=== PATIENT | female | born 1985 | race Caucasian/White ===

== ENCOUNTER 2017-05-16 11:44 | Day surgery (SDC) | payer BC, OTHER ==
[~2017-05-16] VITALS: Ht 167.6 cm; Wt 61.0 kg
[~2017-05-16 11:44] MED LIST: IBUP-1222 PO; IBUP200C5 PO; OXYC-302 PO; PREN1TAB27 PO
[2017-05-16 12:12] VITALS: BP 117/84
[2017-05-16] MEDS ORDERED: LACTATED RINGERS 1,000 ML IV SCH (12:15)
[2017-05-16] MEDS ORDERED: TYLENOL PO (12:18)
[2017-05-16 12:24] LABS: HCG UR LOT HCG7060132
[2017-05-16 12:33] LABS: HCG UR OBC PASS
[2017-05-16] MEDS ORDERED: EPHEDRINE 50 MG/ML, 1ML IVPush PRN (14:00)
[2017-05-16] MEDS ORDERED: ONDANSETRON 2MG/ML, 2ML IVPush PRN (14:00)
[2017-05-16] MEDS ORDERED: hydrALAzine 20 MG/ML, 1ML IV PRN (14:00)
[2017-05-16] MEDS ORDERED: ALBUTEROL SULFATE 2.5 MG/3 ML NPPB PRN (14:00)
[2017-05-16] MEDS ORDERED: FENTANYL PF 100 MCG/2ML IV PRN (14:00)
[2017-05-16] MEDS ORDERED: PROMETHAZINE 25 MG/ML, 1ML IV PRN (14:00)
[2017-05-16] MEDS ORDERED: MEPERIDINE/PF 25MG/0.5ML IVPush PRN (14:00)
[2017-05-16] MEDS ORDERED: HYDROmorphone 1 MG/ML, 1ML IV PRN (14:00)
[2017-05-16] MEDS ORDERED: ACETAMINOPHEN 325 MG TABLET PO PRN (14:00)
[2017-05-16] MEDS ORDERED: METOPROLOL 1 MG/ML, 5ML IV PRN (14:00)
[2017-05-16] MEDS ORDERED: LABETALOL 5MG/ML, 20ML IV PRN (14:00)
[2017-05-16] MEDS ORDERED: DEXAMETHASONE 4 MG/ML, 1ML ONE ×2 (14:04)
[2017-05-16] MEDS ORDERED: PROPOFOL 10 MG/ML, 20ML ONE (14:04)
[2017-05-16] MEDS ORDERED: ONDANSETRON 2MG/ML, 2ML ONE (14:04)
[2017-05-16] MEDS ORDERED: FENTANYL PF 250 MCG/5ML ONE (14:04)
[2017-05-16] MEDS ORDERED: MIDAZOLAM 1 MG/ML, 2ML ONE (14:04)
[2017-05-16] MEDS ORDERED: CLINDAMYCIN 150 MG/ML, 6ML ONE (14:38)
== END 2017-05-16 18:35 ==
LOC: OUT 11:44
PROVIDERS: ATTEND Orthopaedic Surgery
DX: M24.671 Ankylosis, right ankle (principal); M89.8X7 Other specified disorders of bone, ankle and foot; J45.909 Unspecified asthma, uncomplicated; Z88.6 Allergy status to analgesic agent; Z88.8 Allergy status to other drugs, medicaments and biological substances
CPT/HCPCS: 29891; 29898; 81025; J1100; J2250; J2405; J2704; J3010; J7120

== ENCOUNTER → 2020-07-24 | Outpatient (CLI) | payer BC, OTHER ==
[~2020-07-24] MED LIST changes: +IBUP-1623 PO; -IBUP200C5 PO; +LANS15CA PO; +MONT10TA6 PO; -OXYC-302 PO; +OXYC1TAB14 PO; +TYLENOL PO
== END | disposition home or self-care (01) ==
LOC: STAR 12:27
PROVIDERS: ATTEND Obstetrics & Gynecology
DX: Z20.822 Contact with and (suspected) exposure to COVID-19 (principal)
CPT/HCPCS: U0003

== ENCOUNTER 2020-07-26 01:29 | Inpatient (IN) | payer BC, OTHER ==
[~2020-07-26] VITALS: Ht 167.6 cm; Wt 78.1 kg
[~2020-07-26 01:29] MED LIST changes: -LANS15CA PO; -MONT10TA6 PO
[2020-07-26] MEDS ORDERED: SODIUM CITRATE/CITRIC ACID 30 ML UDC PO ONE (05:30)
[2020-07-26] MEDS ORDERED: METOCLOPRAMIDE 5 MG/ML, 2ML IV ONE (05:30)
[2020-07-26] MEDS ORDERED: LACTATED RINGERS 1,000 ML IV SCH (05:30)
[2020-07-26] MEDS ORDERED: LACTATED RINGERS 1,000 ML IVBOLUS ONE (05:30)
[2020-07-26] MEDS ORDERED: MONT10TA6 PO (05:33)
[2020-07-26] MEDS ORDERED: LANS15CA PO (05:34)
[2020-07-26 05:37] VITALS: BP 124/81
[2020-07-26 05:56] LABS: BASOPHILS % (AUTO) 0 % (0-1); EOSINOPHILS % (AUTO) 1 % (1-7); LYMPHOCYTES % (AUTO) 25 % (22-44); MEAN CORPUSCULAR HEMOGLOBIN 31.7 pg (27.0-34.8); MEAN CORPUSCULAR HGB CONC 34.6 g/dL (32.4-35.8); MEAN PLATELET VOLUME 9.7 fL (7.4-10.4); MONOCYTES % (AUTO) 9 % (2-9); NEUTROPHILS % (AUTO) 64 % (42-75); PLATELET COUNT 203 x10^3/uL (130-400); RED CELL DISTRIBUTION WIDTH 14.3 % (9.6-15.2)
[2020-07-26] MEDS ORDERED: NEWBORN KIT ONE (06:05)
[2020-07-26] MEDS ORDERED: SODIUM CITRATE/CITRIC ACID 15 ML UDC ONE (06:12)
[2020-07-26] MEDS ORDERED: METOCLOPRAMIDE 5 MG/ML, 2ML ONE (06:12)
[2020-07-26] MEDS ORDERED: OXYTOCIN 30U/ 0.9% NaCL 500ML 500 ML ONE (06:12)
[2020-07-26 06:26] LABS: MD NO
[2020-07-26] MEDS ORDERED: EPHEDRINE 50 MG/ML, 1ML ONE (06:50)
[2020-07-26] MEDS ORDERED: FENTANYL PF 100 MCG/2ML ONE (06:50)
[2020-07-26] MEDS ORDERED: OXYTOCIN 10 UNITS/ML, 1ML ONE (06:50)
[2020-07-26] MEDS ORDERED: CEFAZOLIN 1,000 MG ONE (06:50)
[2020-07-26] MEDS ORDERED: EPINEPHRINE 1 MG/ML, 1ML ONE (06:50)
[2020-07-26] MEDS ORDERED: ONDANSETRON 2MG/ML, 2ML ONE ×2 (08:08→09:30)
[2020-07-26] MEDS ORDERED: KETOROLAC 30 MG/1 ML ONE (08:08)
[2020-07-26] MEDS ORDERED: ACETAMINOPHEN 500 MG TABLET ONE (08:48)
[2020-07-26] MEDS ORDERED: PROMETHAZINE 25 MG/ML, 1ML ONE ×2 (08:58→12:54)
[2020-07-26] MEDS ORDERED: OXYcodone IR 5MG TABLET PO PRN (09:00)
[2020-07-26] MEDS ORDERED: ONDANSETRON 2MG/ML, 2ML IV PRN (09:00)
[2020-07-26] MEDS ORDERED: PROMETHAZINE 25 MG/ML, 1ML IM PRN ×2 (09:00→19:00)
[2020-07-26] MEDS ORDERED: morphine SULFATE 10 MG/ML, 1ML IVPush PRN ×2 (09:00)
[2020-07-26] MEDS ORDERED: MISOPROSTOL 200 MCG TABLET PR PRN (09:00)
[2020-07-26] MEDS ORDERED: ACETAMINOPHEN 500 MG TABLET PO ONE (09:00)
[2020-07-26] MEDS ORDERED: MEASLES,MUMPS&RUBELLA VACC/PF 0.5 ML SQ-VACC PRN (09:00)
[2020-07-26] MEDS ORDERED: RHOGAM FROM BLOOD BANK 1 NOTE EA IM/IV ONE (09:00)
[2020-07-26] MEDS ORDERED: CALCIUM CARBONATE 500 MG TAB.CHEW PO PRN (09:00)
[2020-07-26] MEDS: LACTATED RINGERS 1,000 ML IV SCH ×4 (09:00→19:00)
[2020-07-26] MEDS ORDERED: SIMETHICONE 80 MG CHEW TAB PO PRN (09:00)
[2020-07-26] MEDS ORDERED: METOCLOPRAMIDE 5 MG/ML, 2ML IV PRN (09:00)
[2020-07-26] MEDS ORDERED: ACETAMINOPHEN 325 MG TABLET PO PRN (09:00)
[2020-07-26] MEDS: PRENATAL VIT/IRON/FA 1 EACH TABLET PO SCH (09:00)
[2020-07-26] MEDS: OXYTOCIN 30U/ 0.9% NaCL 500ML 500 ML IV SCH ×2 (09:47→19:00)
[2020-07-26 11:00] VITALS: BP 112/72
[2020-07-26] MEDS: KETOROLAC 30 MG/1 ML IV PRN ×2 (12:56→19:00)
[2020-07-26] MEDS: OXYcodone IR 5MG TABLET PO PRN ×3 (12:57→21:58)
[2020-07-26] MEDS ORDERED: PROMETHAZINE 25MG TABLET PO PRN (13:00)
[2020-07-26] MEDS ORDERED: MEPERIDINE/PF 50 MG/ML IM PRN (13:00)
[2020-07-26] MEDS: ACETAMINOPHEN 325 MG TABLET PO PRN ×2 (15:56→20:20)
[2020-07-26 16:00] VITALS: BP 110/78
[2020-07-26 19:32] VITALS: BP 114/72
[2020-07-26 20:10] LABS: BASOPHILS % (AUTO) 1 % (0-1); EOSINOPHILS % (AUTO) 1 % (1-7); LYMPHOCYTES % (AUTO) 18 % (22-44); MEAN CORPUSCULAR HEMOGLOBIN 31.9 pg (27.0-34.8); MEAN CORPUSCULAR HGB CONC 34.2 g/dL (32.4-35.8); MEAN PLATELET VOLUME 9.1 fL (7.4-10.4); MONOCYTES % (AUTO) 6 % (2-9); NEUTROPHILS % (AUTO) 75 % (42-75); PLATELET COUNT 147 x10^3/uL (130-400); RED BLOOD COUNT 3.25 x10^6/uL (3.82-5.3); RED CELL DISTRIBUTION WIDTH 14.2 % (9.6-15.2)
[2020-07-26 20:13] LABS: MD NO
[2020-07-26] MEDS: DOCUSATE 100 MG CAPSULE PO PRN (21:33)
[2020-07-27 00:33] VITALS: BP 108/74
[2020-07-27] MEDS: KETOROLAC 30 MG/1 ML IV PRN ×2 (01:18→07:33)
[2020-07-27] MEDS: OXYcodone IR 5MG TABLET PO PRN ×6 (02:08→22:26)
[2020-07-27 04:01] VITALS: BP 111/75
[2020-07-27] MEDS: ACETAMINOPHEN 325 MG TABLET PO PRN ×4 (04:04→22:23)
[2020-07-27] MEDS: OXYTOCIN 30U/ 0.9% NaCL 500ML 500 ML IV SCH ×2 (05:00→15:00)
[2020-07-27] MEDS: LACTATED RINGERS 1,000 ML IV SCH ×5 (05:00→17:00)
[2020-07-27 07:10] VITALS: BP 110/78
[2020-07-27] MEDS: DOCUSATE 100 MG CAPSULE PO PRN ×2 (07:33→19:48)
[2020-07-27] MEDS: PRENATAL VIT/IRON/FA 1 EACH TABLET PO SCH (09:00)
[2020-07-27 12:00] VITALS: BP 118/79
[2020-07-27] MEDS: IBUPROFEN 600 MG TABLET PO PRN ×2 (13:29→19:48)
[2020-07-27] MEDS ORDERED: OXYcodone IR 5MG TABLET ONE (14:01)
[2020-07-27 19:48] VITALS: BP 115/78
[2020-07-28] MEDS: LACTATED RINGERS 1,000 ML IV SCH ×2 (01:00)
[2020-07-28] MEDS: OXYTOCIN 30U/ 0.9% NaCL 500ML 500 ML IV SCH (01:00)
[2020-07-28] MEDS: OXYcodone IR 5MG TABLET PO PRN ×3 (02:28→10:20)
[2020-07-28] MEDS: ACETAMINOPHEN 325 MG TABLET PO PRN ×2 (02:28→06:34)
[2020-07-28] MEDS: IBUPROFEN 600 MG TABLET PO PRN ×2 (02:28→08:15)
[2020-07-28] MEDS ORDERED: IBUP-1222 PO (07:18)
[2020-07-28] MEDS ORDERED: OXYC1TAB14 PO (07:18)
[2020-07-28 08:00] VITALS: BP 115/81
[2020-07-28] MEDS: DOCUSATE 100 MG CAPSULE PO PRN (08:15)
[2020-07-28] MEDS ORDERED: ONDANSETRON ODT 4 MG PO ONE (10:00)
== END 2020-07-28 10:25 | disposition home or self-care (01) | DRG 785 ==
LOC: LDIP 05:22 → 2NW 10:50
PROVIDERS: ADMIT Obstetrics & Gynecology; ATTEND Obstetrics & Gynecology
PROC: 10D00Z1 Extraction of Products of Conception, Low, Open Approach (ICD-10-PCS; principal; 2020-07-26)
PROC: 0UB70ZZ Excision of Bilateral Fallopian Tubes, Open Approach (ICD-10-PCS; 2020-07-26)
DX: O34.211 Maternal care for low transverse scar from previous cesarean delivery (principal); J45.909 Unspecified asthma, uncomplicated; O99.52 Diseases of the respiratory system complicating childbirth; Z37.0 Single live birth; Z3A.39 39 weeks gestation of pregnancy; Z80.1 Family history of malignant neoplasm of trachea, bronchus and lung; Z80.3 Family history of malignant neoplasm of breast; Z80.8 Family history of malignant neoplasm of other organs or systems; Z82.49 Family history of ischemic heart disease and other diseases of the circulatory system; Z82.62 Family history of osteoporosis; Z83.3 Family history of diabetes mellitus; Z88.5 Allergy status to narcotic agent; Z88.8 Allergy status to other drugs, medicaments and biological substances
CPT/HCPCS: 36415; 85025; 86592; 86850; 86900; 88302; G0378; J0171; J0690; J1885; J2405; J2550; J3010; Q0162; C1765; J2590; J2765; J7120